=== PATIENT | male | born 1950 | race African-American/Black ===

== ENCOUNTER 2017-01-17 18:05 | Emergency (ER) | payer MEDICAID, OTHER ==
[~2017-01-17] VITALS: Ht 172.7 cm; Wt 90.7 kg
[~2017-01-17 18:05] MED LIST: NKM; NORCO 5-325 TA1 EACH ORAL
[2017-01-17 18:54] VITALS: BP 118/62
[2017-01-17] MEDS ORDERED: Albuterol ud Inhalation HHN ONE (19:00)
[2017-01-17] MEDS ORDERED: Ipratropium 0.02% Inh Soln 2.5ml UD HHN ONE (19:00)
[2017-01-17] MEDS ORDERED: PROMETHAZINE-D118 ML ORAL (19:52)
[2017-01-17] MEDS ORDERED: ZITHROMAX250 MG ORAL (19:52)
[2017-01-17] MEDS ORDERED: PROAIR HFA8.5 GM INH (19:52)
[2017-01-17] MEDS ORDERED: PREDNISONE20 M1 PO (19:52)
[2017-01-17 19:59] VITALS: BP 118/62
[2017-01-17 20:00] VITALS: BP 118/62
--- NOTE | 2017-01-17 22:08 | Emergency Room Report ---
History of Present Illness General Chief Complaint: Upper Respiratory Illness Source: Patient Present Illness HPI The patient is a 66-year-old male presenting with a dry cough for the past 3 days. Patient admits to subjective fevers as well. Patient denies any sick contacts recent travel. Patient denies other symptoms including chest pain, shortness of breath, night sweats, diaphoresis, rash, headache Allergies: Coded Allergies: No Known Allergies (Unverified , 05/08/14) Patient History Past Medical History: see triage record Pertinent Family History: none Reviewed Nursing Documentation: PMH: Agreed, PSxH: Agreed Nursing Documentation-PMH Hx Hypertension: Yes Review of Systems All Other Systems: negative except mentioned in HPI Physical Exam Vital Signs Date Time Temp Pulse Resp B/P Pulse Ox O2 Delivery O2 Flow Rate FiO2 01/17/17 18:07 98.2 99 28 118/62 98 Room Air Sp02 EP Interpretation: reviewed, normal General Appearance: no apparent distress, alert, GCS 15, non-toxic Head: normocephalic, atraumatic Eyes: bilateral eye PERRL, bilateral eye normal inspection ENT: hearing grossly normal, normal pharynx, no angioedema, normal voice, uvula midline Neck: full range of motion, supple/symm/no masses Respiratory: chest non-tender, normal breath sounds, speaking full sentences, wheezing - diffuse Cardiovascular #1: regular rate, rhythm, no edema Musculoskeletal: back normal, gait/station normal, normal range of motion, non- tender Neurologic: alert, oriented x3, responsive, motor strength/tone normal, sensory intact, speech normal Psychiatric: judgement/insight normal, memory normal, mood/affect normal, no suicidal/homicidal ideation Skin: normal color, no rash, warm/dry, well hydrated Lymphatic: no adenopathy Medical Decision Making PA Attestation Dr. Oliva is my supervising physician. Patient management was discussed with my supervising physician Diagnostic Impression: Primary Impression: Atypical pneumonia ER Course The patient is a 66-year-old male presenting with a dry cough for the past 3 days. Differential diagnosis include but not limited to pharyngitis, bronchitis, PNA Physical exam: The patient is initially tachypneic. Afebrile. No apparent distress HEENT exam is unremarkable. No tonsillar edema or erythema. Lungs: Diffuse wheezing Chest x-ray is unremarkable Patient is given a breathing treatment and is feeling much better. Lung sounds have increased and wheezing has decreased. The patient will be discharged home with a prescription for antibiotics, cough medication, albuterol, prednisone, and will followup with PMD. ER precautions given Chest X-Ray Diagnostic Results EP Interpretation: Yes Findings: no consolidation, no effusion, no pneumothorax, no acute cardiopulmonary disease Number of Views: 1 PA Scribe Text I am acting as scribe for my supervising physician. My supervising physician's interpretation of the chest xrays are there is no consolidation, no effusion, no acute cardiopulmonary disease, no pneumothorax Last Vital Signs Date Time Temp Pulse Resp B/P Pulse Ox O2 Delivery O2 Flow Rate FiO2 01/17/17 20:00 98.0 88 20 118/62 98 Room Air Status: improved Disposition: HOME, SELF-CARE Condition: Improved Scripts Prednisone (Prednisone) 20 Mg Tablet 20 MG PO DAILY, #5 TAB Prov: IRISH GUTHRIE P.A. 01/17/17 Albuterol Sulfate* (PROAIR HFA*) 8.5 Gm Hfa.aer.ad 2 PUFFS INH Q6H, #8.5 GM 0 Refills Prov: IRISH GUTHRIE P.A. 01/17/17 D-Methorphan Hb/Prometh Hcl* (PROMETHAZINE-DM SYRUP*) 118 Ml Syrup 5 ML ORAL Q6H Y for For Cough, #118 ML 0 Refills Prov: IRISH GUTHRIE P.A. 01/17/17 Azithromycin* (ZITHROMAX*) 250 Mg Tablet 250 MG ORAL DAILY, #6 TAB 0 Refills Take two tables once daily for 1 day, then one tablet once daily for 4 days. Prov: IRISH GUTHRIE P.A. 01/17/17 Referrals: [facility]ERR[facility] (PCP) Patient Instructions: Cough, Adult Additional Instructions: I discussed my findings with the patient. All questions and concerns have been answered. Treatment and medication compliance have been addressed. I advised the patient that they need to follow up with PMD in 3-5 days. Return to ED if pain remains or worsens, cough worsens or remains, you notice blood in your sputum, you notice wheezing, you experience a fever, or if needed for any reason. Patient verbalized understanding of discharge instructions. IRISH GUTHRIE Jan 17, 2017 22:08
--- NOTE | 2017-01-20 08:12 | Diagnostic Imaging Report ---
Indication: Cough Comparison: None A single view chest radiograph was obtained. Findings: The heart is enlarged. Pulmonary vascularity is normal. There are linear horizontal densities at the lung bases probably atelectasis. There is prominence of the interstitium at the lung bases. Bones are unremarkable. Impression: Interstitial prominence at the lung bases, nonspecific. Interstitial pneumonitis could be present. Please correlate clinically. Cardiomegaly without evidence of CHF
== END 2017-01-17 20:01 | disposition home or self-care (01) ==
LOC: EMR 18:33
DX: J18.9 Pneumonia, unspecified organism (principal); I10 Essential (primary) hypertension
CPT/HCPCS: 71010; 94640; 94664; 99284